=== PATIENT | female | born 1950 | race Caucasian/White ===

== ENCOUNTER 2016-09-27 14:01 | Emergency (ER) | payer MEDICARE, OTHER ==
[~2016-09-27] VITALS: Wt 61.3 kg
[~2016-09-27 14:01] MED LIST: ACET-818 PO; GABA400C14 PO; METO25TA7
[2016-09-27] MEDS ORDERED: SOD CHLORIDE 0.9% 1,000 ML IV STA (14:04)
--- NOTE | 2016-09-27 14:35 | RADRPT ---
PROCEDURE: XR Chest. CLINICAL INDICATION: chest pain TECHNIQUE: Single frontal view of the chest was obtained COMPARISON: 10/06/2013 FINDINGS: The heart and mediastinum are within normal limits. There is elevation of the left diaphragm. There is a small left pleural effusion versus pleural thickening. The lungs are clear. There is no pneumothorax. RPTAT: AA IMPRESSION: Elevated left diaphragm with blunting of the left costophrenic angle which may represent chronic ple ural thickening versus a small left pleural effusion. .Joey Garcia MD, MD Date Time Electronically viewed and signed by .Joey Garcia MD, MD on 09/27/2016 14:35 .S/
[2016-09-27 14:41] LABS: ADD SCAN DIFF NO
[2016-09-27 14:43] LABS: BASOPHILS % 0.6 % (0.0-2.0); EOSINOPHILS # 0.1 10^3/ul (0.0-0.5); EOSINOPHILS % 0.7 % (0.0-7.0); HEMATOCRIT 43.1 % (37.0-47.0); HEMOGLOBIN 14.5 g/dl (12.0-16.0); LYMPHOCYTES # 1.4 10^3/ul (0.8-2.9); LYMPHOCYTES % 19.5 % (15.0-51.0); MEAN CORPUSCULAR HEMOGLOBIN 30.1 pg (29.0-33.0); MEAN CORPUSCULAR HGB CONC 33.6 g/dl (32.0-37.0); MEAN CORPUSCULAR VOLUME 89.4 fl (82.0-101.0); MEAN PLATELET VOLUME 9.6 fl (7.4-10.4); MONOCYTE # 0.5 10^3/ul (0.3-0.9); MONOCYTES % 6.5 % (0.0-11.0); NEUTROPHIL # 5.1 10^3/ul (1.6-7.5); NEUTROPHILS % 72.1 % (39.0-77.0); PLATELET COUNT 257 10^3/UL (140-415); RED BLOOD COUNT 4.82 10^6/ul (4.20-5.40); RED CELL DISTRIBUTION WIDTH 12.9 % (11.5-14.5); WHITE BLOOD COUNT 7.1 10^3/ul (4.8-10.8)
[2016-09-27 14:59] LABS: INR 0.91; PARTIAL THROMBOPLASTIN TIME 25.6 Sec (25.0-35.0); PROTIME 12.2 Sec (12.2-14.2)
[2016-09-27] MEDS ORDERED: METO10TA96 PO (15:02)
[2016-09-27] MEDS ORDERED: LORA1TAB PO (15:03)
[2016-09-27] MEDS ORDERED: ONDA-43 PO (15:03)
[2016-09-27] MEDS ORDERED: FAMO40TA52 PO (15:05)
[2016-09-27] MEDS ORDERED: LOSA1TAB21 PO (15:06)
[2016-09-27 15:11] LABS: ALANINE AMINOTRANSFERASE 40 IU/L (13-69); ALBUMIN 4.6 g/dl (3.3-4.9); ALBUMIN/GLOBULIN RATIO 1.91; ALKALINE PHOSPHATASE 59 IU/L (42-121); ANION GAP 14 (8-16); ASPARTATE AMINO TRANSFERASE 19 IU/L (15-46); BILIRUBIN,INDIRECT 0.2 mg/dl (0-1.1); BILIRUBIN,TOTAL 0.2 mg/dl (0.2-1.3); BLOOD UREA NITROGEN 9 mg/dl (7-20); CALCIUM 9.1 mg/dl (8.4-10.2); CARBON DIOXIDE 23 mmol/L (21-31); CHLORIDE 103 mmol/L (97-110); CREATININE 0.28 mg/dl (0.44-1.00); GLUCOSE 148 mg/dl (70-220); POTASSIUM 4.1 mmol/L (3.5-5.1); SODIUM 136 mmol/L (135-144)
[2016-09-27 15:15] VITALS: BP 121/62; PULSE 73; RESP 10
[2016-09-27 15:23] LABS: TROPONIN-I < 0.012 ng/ml (0.00-0.12)
--- NOTE | 2016-09-27 15:53 | ERD ---
ER Documentation Chief Complaint Date/Time DATE: 09/27/16 TIME: 15:52 Chief Complaint CHEST PAIN WITH MILD DISTRESS. MILD SOB NOTED. ON BIPAP. NON PROVOKED, HPI Patient is a 66-year-old female with hypertension and ALS who presents with nausea, vomiting, and diarrhea. She was brought in by ambulance. She has had the symptoms for the past 24 hours. She denies chest pain. An EKG done by paramedics showed a possible STEMI. She has no chest pain at this time. She was brought in by ambulance. Upon review of old medical records the patient one previous visit to the ER. She is a DO NOT INTUBATE. Patient is currently on her home BiPAP machine which she is on at all times except when eating. ROS All systems reviewed and are negative except as per history of present illness. Medications Home Meds Reported Medications Losartan-Hydrochlorothiazide (Losartan-HCTZ) 100-12.5 Mg Tab, 1 TAB PO DAILY, # 30 09/27/16 Famotidine* (Famotidine*) 40 Mg Tablet, 40 MG PO HS, #30 TAB 09/27/16 Ondansetron Hcl* (Zofran*) 4 Mg Tab, 4 MG PO Q6H Y for NAUSEA AND OR VOMITING, TAB 09/27/16 Lorazepam* (Lorazepam*) 1 Mg Tablet, 1 MG PO DAILY Y for ANXIETY, #30 TAB 09/27/16 Metoclopramide Hcl* (Metoclopramide Hcl*) 10 Mg Tablet, 10 MG PO Q6H Y for NAUSEA AND OR VOMITING, TAB 09/27/16 Discontinued Reported Medications Metoprolol Succinate* (Toprol XL*) 25 Mg Tab.sr.24h 10/06/13 Acetaminophen-Codeine* (Tylenol No.3*) 300-30 Mg Tab, 1 TAB PO 10/06/13 Gabapentin* (Gabapentin*) 400 Mg Capsule, 200 MG PO BID 10/06/13 Allergies Allergies: Coded Allergies: No Known Allergy (Unverified , 09/27/16) PMhx/Soc Hx Miscellaneous Medical Probl: Yes (ALS) Hx Alcohol Use: No Hx Substance Use: No Hx Tobacco Use: No FmHx Family History: No diabetes Physical Exam Vitals Vital Signs Date Time Temp Pulse Resp B/P Pulse Ox O2 Delivery O2 Flow Rate FiO2 09/27/16 15:02 98.9 91 20 119/48 98 Physical Exam Const: No acute distress, on BiPAP therapy Head: Atraumatic Eyes: Normal Conjunctiva ENT: Normal External Ears, Nose and Mouth. Neck: Full range of motion..~ No meningismus. Resp: Clear to auscultation bilaterally Cardio: Regular rate and rhythm, no murmurs Abd: Soft, non tender, non distended. Normal bowel sounds Skin: Pale skin Back: No midline or flank tenderness Ext: No cyanosis, or edema Neur: Awake and alert Psych: Normal Mood and Affect Result Diagram: 09/27/16 1420 09/27/16 1420 Results 24 hrs Laboratory Tests Test 09/27/16 14:20 White Blood Count 7.110^3/ul Red Blood Count 4.8210^6/ul Hemoglobin 14.5g/dl Hematocrit 43.1% Mean Corpuscular Volume 89.4fl Mean Corpuscular Hemoglobin 30.1pg Mean Corpuscular Hemoglobin Concent 33.6g/dl Red Cell Distribution Width 12.9% Platelet Count 69799^3/UL Mean Platelet Volume 9.6fl Neutrophils % 72.1% Lymphocytes % 19.5% Monocytes % 6.5% Eosinophils % 0.7% Basophils % 0.6% Nucleated Red Blood Cells % 0.0/100WBC Neutrophils # 5.110^3/ul Lymphocytes # 1.410^3/ul Monocytes # 0.510^3/ul Eosinophils # 0.110^3/ul Basophils # 0.010^3/ul Nucleated Red Blood Cells # 0.010^3/ul Prothrombin Time 12.2Sec Prothrombin Time Ratio 1.0 INR International Normalized Ratio 0.91 Activated Partial Thromboplast Time 25.6Sec Sodium Level 136mmol/L Potassium Level 4.1mmol/L Chloride Level 103mmol/L Carbon Dioxide Level 23mmol/L Anion Gap 14 Blood Urea Nitrogen 9mg/dl Creatinine 0.28mg/dl Glucose Level 148mg/dl Lactic Acid Level 1.4mmol/L Calcium Level 9.1mg/dl Total Bilirubin 0.2mg/dl Direct Bilirubin 0.00mg/dl Indirect Bilirubin 0.2mg/dl Aspartate Amino Transf (AST/SGOT) 19IU/L Alanine Aminotransferase (ALT/SGPT) 40IU/L Alkaline Phosphatase 59IU/L Troponin I < 0.012ng/ml Total Protein 7.0g/dl Albumin 4.6g/dl Globulin 2.40g/dl Albumin/Globulin Ratio 1.91 Current Medications Medications (Trade) Dose Ordered Sig/Hiram Route PRN Reason Start Time Stop Time Status Last Admin Dose Admin Sodium Chloride (NS) 1,000 ml @ 1,000 mls/hr Q1H STAT IV 09/27/16 14:04 09/27/16 15:03 DC 09/27/16 15:17 Procedures/MDM EKG #1 read by me: Rate/Rhythm: Regular rate and rhythm at a rate of 66 Intervals: Normal Impression: No evidence of ischemia or arrhythmia, no signs of ST elevations EKG #2 read by me: Rate/Rhythm: Regular rate and rhythm at a rate of 79 Intervals: Normal Impression: No evidence of ischemia or arrhythmia, no ST elevation Chest x-ray shows no pneumonia or pneumothorax per radiology. Patient is a 66-year-old female with ALS who presents with nausea, vomiting, and diarrhea. The patient had a full workup including 2 EKGs, laboratory studies, and chest x-ray. She feels better now after Zofran. The patient has no sign of ST elevations on 2 EKGs and her troponin is negative. I did offer admission to the family but at this point the patient would prefer to go home in the family as well and I think this is reasonable. I see no signs of acute coronary syndrome, pneumonia, pneumothorax, pulmonary embolism, or aortic dissection. Electrolytes are normal. There is no acute renal failure. The patient will be discharged home and will need to follow-up with her primary doctor within 24-48 hours. The patient can take Zofran every 6 hours as needed for nausea or vomiting. Departure Diagnosis: Primary Impression: Nausea and vomiting Vomiting type: unspecified Vomiting Intractability: non-intractable Qualified Code: R11.2 - Non-intractable vomiting with nausea, unspecified vomiting type Condition: Fair Patient Instructions: Nausea and Vomiting-Adult Additional Instructions: Call your primary care doctor TOMORROW for an appointment during the next 1-2 days.See the doctor sooner or return here if your condition worsens before your appointment time. ALYSE ALVAREZ MD Sep 27, 2016 15:53
[2016-09-27 16:06] LABS: ADD UMIC YES; URINE BILIRUBIN (Dip) NEGATIVE (NEGATIVE); URINE BLOOD (Dip) 1+ (NEGATIVE); URINE COLOR LT. YELLOW (YELLOW); URINE GLUCOSE (Dip) NEGATIVE (NEGATIVE); URINE KETONES (Dip) 40 (NEGATIVE); URINE LEUKOCYTE ESTERASE (Dip) 1+ (NEGATIVE); URINE NITRITE (Dip) POSITIVE (NEGATIVE); URINE TOTAL PROTEIN (Dip) TRACE (NEGATIVE); URINE UROBILINOGEN (Dip) 0.2 E.U./dL (0.1-1.0)
[2016-09-27 16:25] LABS: BACTERIA,URINE MANY; TRANSITIONAL EPI CELLS,URINE FEW
[2016-09-27] MEDS ORDERED: NITR-58 PO (16:37)
== END 2016-09-27 17:26 | disposition home or self-care (01) ==
LOC: E/R 14:01
DX: R11.2 Nausea with vomiting, unspecified (principal); R40.2252 Coma scale, best verbal response, oriented, at arrival to emergency department; R40.2142 Coma scale, eyes open, spontaneous, at arrival to emergency department; R40.2362 Coma scale, best motor response, obeys commands, at arrival to emergency department
CPT/HCPCS: 36415; 71010; 80053; 81001; 83605; 84484; 85025; 85610; 85730; 87040; 87086; 99285; J7030; 93005